=== PATIENT | female | born 1980 | race Caucasian/White ===

== ENCOUNTER 2021-08-24 12:03 | Emergency (ER) | payer BC ==
[~2021-08-24] VITALS: Ht 154.9 cm; Wt 91.2 kg
[2021-08-24 14:52] LABS: URINE BILIRUBIN NEGATIVE (Negative); URINE BLOOD 3+ (Negative); URINE CLARITY CLEAR; URINE COLOR YELLOW; URINE GLUCOSE-RANDOM NEGATIVE (Negative); URINE KETONES TRACE (Negative); URINE LEUKOCYTES-REFLEX TRACE (Negative); URINE PROTEIN NEGATIVE (Negative); URINE SPECIFIC GRAVITY 1.025 (1.005-1.030); URINE UROBILINOGEN 0.2 E.U./dl (0.2-1.0)
[2021-08-24 14:55] LABS: URINE NITRITE-REFLEX POSITIVE (Negative)
[2021-08-24 15:00] LABS: SQUAMOUS >10 Many /LPF (0-3)
[2021-08-24 15:01] LABS: CASTS None Seen /LPF (None Seen); CRYSTALS None Seen /LPF (None Seen); MUCUS None Seen strn/LPF (None Seen); URINE WBC-REFLEX 6-15 Few /HPF (0-5)
[2021-08-24 15:02] LABS: URINE RBC 3-10 Few /HPF (0-2)
[2021-08-24 17:13] LABS: HEMATOCRIT 36.3 % (37.0-47.0); HEMOGLOBIN 12.1 gm/dL (12.0-15.0); MCH 27.1 pg (26.0-34.0); MCHC 33.3 g/dL (28.0-37.0); MCV 81.3 fL (80.0-100.0); MPV 8.7 fl. (7.2-11.1); NUCLEATED RBCS 0 /100WBC; PLATELET COUNT* 242 thou/uL (150-400); RBC 4.46 mil/uL (4.20-5.00); RDW-CV 14.3 % (10.5-14.5); WBC 15.9 thou/uL (4.0-11.0)
[2021-08-24 17:18] LABS: CALCIUM 8.4 mg/dL (8.5-10.1); POTASSIUM 3.4 mmol/L (3.5-5.1)
[2021-08-24 17:22] LABS: ALBUMIN 2.9 g/dL (3.4-5.0); TOTAL BILIRUBIN 0.3 mg/dL (<0.1-1.0); TOTAL PROTEIN 6.8 g/dL (6.4-8.2)
[2021-08-24 18:00] LABS: ABSOLUTE LYMPHOCYTES 0.6 thou/uL (0.8-5.3); ABSOLUTE MONOCYTES 1.3 thou/uL (0.0-1.2)
[2021-08-24 18:01] LABS: PLATELET ESTIMATE ADEQUATE; POLYCHROMASIA 1+
[2021-08-24] MEDS ORDERED: ZOFRAN ODT4 MG DISSOLVE (18:24)
[2021-08-24] MEDS ORDERED: CEPHALEXIN500 MG PO (18:24)
[2021-08-24] MEDS ORDERED: PYRIDIUM200 MG PO (18:24)
[2021-08-24 18:49] VITALS: BP 107/60
== END 2021-08-24 18:49 | disposition home or self-care (01) ==
LOC: M.ERS 12:03
PROVIDERS: Emergency Medicine Emergency Medical Services; Nurse Practitioner Family
DX: N12 Tubulo-interstitial nephritis, not specified as acute or chronic (principal)